=== PATIENT | female | born 1980 | race American Indian/Alaskan Native ===

== ENCOUNTER 2022-04-28 23:53 | Emergency (ER) | payer SELFPAY ==
[2022-04-29 03:18] LABS: Hematocrit 38.4 % (30.3-42.9); Hemoglobin 12.8 gm/dl (10.1-14.3); Mean Corpuscular HGB Conc 33 % (30-34); Mean Corpuscular Volume 93 fl (79-97); Platelet Count 415 K/mm3 (140-440); Red Blood Count 4.14 M/mm3 (3.65-5.03); Red Cell Distribution Width 14.1 % (13.2-15.2)
[2022-04-29 03:26] LABS: BUN/Creatinine Ratio 7; Blood Urea Nitrogen 4 mg/dL (7-17); Calcium 8.8 mg/dL (8.4-10.2); Hemolysis Index 27
[2022-04-29 03:27] LABS: Bacteria,Urine 2+ /HPF (Negative); Mucus,Urine FEW /HPF; RBC,Urine < 1.0 /HPF (0.0-6.0); WBC,Urine < 1.0 /HPF (0.0-6.0)
[2022-04-29 03:30] LABS: Amphetamine Screen,Urine Negative; Benzodiazepines Screen,Urine Negative; Cannabinoid Screen,Urine Negative; Cocaine Screen,Urine Negative; Methadone Screen,Urine Negative; Opiate Screen,Urine Negative
[2022-04-29 03:32] LABS: Color,Urine Yellow (Yellow)
--- NOTE | 2022-04-29 05:26 | Emergency Department Report ---
ED General Adult HPI - General Chief complaint: Psych Stated complaint: DETOX Time Seen by Provider: 04/29/22 04:17 Source: patient Mode of arrival: Ambulatory Limitations: No Limitations - History of Present Illness Initial comments: Patient is a 41-year-old female presenting to ED with request for EtOH detox. Reports last drink was 2 hours prior to arrival. Severity scale (0 -10): 0 - Related Data Home Medications Medication Instructions Recorded Confirmed Last Taken Duloxetine HCl [Cymbalta] 60 mg PO QDAY 04/29/22 04/29/22 Unknown Quetiapine Fumarate [SEROquel] 50 mg PO QHS 04/29/22 04/29/22 Unknown Allergies Allergy/AdvReac Type Severity Reaction Status Date / Time No Known Allergies Allergy Unverified 04/29/22 02:22 ED Review of Systems ROS: Stated complaint: DETOX Other details as noted in HPI Constitutional: denies: chills, fever Respiratory: denies: cough, shortness of breath, wheezing Cardiovascular: denies: chest pain, palpitations Gastrointestinal: denies: abdominal pain, nausea, diarrhea Musculoskeletal: denies: back pain, joint swelling, arthralgia Skin: denies: rash, lesions Neurological: denies: headache, weakness, paresthesias Psychiatric: denies: anxiety, depression ED Past Medical Hx - Medications Home Medications: Home Medications Medication Instructions Recorded Confirmed Last Taken Type Duloxetine HCl [Cymbalta] 60 mg PO QDAY 04/29/22 04/29/22 Unknown History Quetiapine Fumarate [SEROquel] 50 mg PO QHS 04/29/22 04/29/22 Unknown History ED Physical Exam - General Limitations: No Limitations General appearance: alert, in no apparent distress - Head Head exam: Present: atraumatic, normocephalic - Respiratory Respiratory exam: Present: normal lung sounds bilaterally. Absent: respiratory distress - Cardiovascular Cardiovascular Exam: Present: regular rate, normal rhythm, normal heart sounds - GI/Abdominal GI/Abdominal exam: Present: soft. Absent: distended, tenderness - Rectal Rectal exam: Present: deferred - Neurological Exam Neurological exam: Present: alert, oriented X3 - Psychiatric Psychiatric exam: Present: normal affect, normal mood - Skin Skin exam: Present: warm, dry, intact, normal color ED Course Vital Signs 08/21/22 08/21/22 08/21/22 01:57 04:09 04:15 Temperature 98.5 F 98.3 F Pulse Rate 114 H 122 H Respiratory 20 18 Rate Blood Pressure 98/67 Blood Pressure 103/62 [Right] O2 Sat by Pulse 97 98 97 Oximetry ED Medical Decision Making - Lab Data Result diagrams: 04/29/22 02:45 04/29/22 02:45 - Medical Decision Making Labs grossly unremarkable except for serum alcohol of 0.12. Awaiting mental health assessment. Critical care attestation.: If time is entered above; I have spent that time in minutes in the direct care of this critically ill patient, excluding procedure time. ED Disposition Clinical Impression: Desire for detoxification Disposition: 30 STILL A PATIENT Is pt being admited?: No Condition: Stable
[2022-04-29 07:05] LABS: Basophils % (Manual) 0 % (0.0-1.8); Total Cells Counted 100
[2022-04-29 07:06] LABS: Anisocytosis 1+; Platelet Estimate Consistent w Auto
[2022-04-29 09:31] VITALS: BP 102/76
--- NOTE | 2022-04-29 10:11 | Consultation ---
History of Present Illness - Reason for Consult Consult date: 04/29/22 Reason for consult: Mental health evaluation - History of Present Psychiatric Illness The patient is a 41 year old female with history of Depression, Anxiety and alcohol use disorder who presents to the ED for detoxification. The patient was seen today. She is calm, alert and oriented x4. She reports that she was in a rehab and that she consume alcohol yesterday " 2 beers" and was told she needs to have 5 days detox before she can be readmitted. She reports that she started drinking at age 14 with longest period of sobriety as 30 days. She reports trigger as " I bottle everything in and it just comes out." She denies any current suicidal/homicidal ideation and denies hallucinations. No withdrawal symptom noted. PAST PSYCHIATRIC HISTORY Diagnoses: Depression, Anxiety, Alcohol use Suicide attempts or Self-harm behavior: Denies Prior psychiatric hospitalizations: Yes Substance Abuse history: alcohol Previous psychiatric medications tried: Unknown Outpatient treatment: Unknown PAST MEDICAL HISTORY: None reported Family Psychiatric History: None reported or documented SOCIAL HISTORY Marital Status: single Living Arrangements: Homeless Employment Status: Unemployed Access to guns/weapons: Denies Education: 9th grade History of Abuse: Denies Legal History: Denies REVIEW OF SYSTEMS Constitutional: Negative for weight loss ENT: Negative for stridor Respiratory: Negative for cough or hemoptysis All other systems reviewed and are negative MENTAL STATUS EXAMINATION General Appearance and Behavior: Age appropriate, good hygiene, wearing appropriate clothes, good eye contact, calm, cooperative Cooperation: Participating/engaged Psychomotor Behavior: Psychomotor normal Mood: Calm Affect and affective range: congruent with stated mood Thought Process: goal directed Thought Content: Reality oriented Speech: Normal tone and pace Suicidal Ideation: Denies Homicidal Ideation: Denies Hallucinations: Denies Delusions: None elicited Impulse Control: Normal Insight and Judgment: Limited insight and judgment Memory: Normal Attention: Attentive Orientation: Alert, oriented Assessment and Plan Alcohol use disorder Treatment Plan Continue home Meds Risks, benefits and alternatives of medications discussed with the patient, questions answered and consent obtained from patient. PSYCHOTHERAPY: Supportive psychotherapy provided MEDICAL: Per primary team DELIRIUM PRECAUTIONS: Please re-orient patient frequently, keep lights on during the day, and minimize benzodiazepines and opiates as these medications could worsen patient's confusion. STOCK SHAPER: Defer to primary DISPOSITION:Do not recommend acute inpatient psychiatric hospitalization at this time. Concrete Saw Operator will provide patient with psychiatric outpatient resources. Will sign off. Thank you for the consult. Please contact with any questions and/or concerns. Case staffed with Dr. Padilla Medications and Allergies Allergies Allergy/AdvReac Type Severity Reaction Status Date / Time No Known Allergies Allergy Unverified 04/29/22 02:22 Home Medications Medication Instructions Recorded Confirmed Last Taken Type Duloxetine HCl [Cymbalta] 60 mg PO QDAY 04/29/22 04/29/22 Unknown History Quetiapine Fumarate [SEROquel] 50 mg PO QHS 04/29/22 04/29/22 Unknown History Mental Status Exam - Vital signs Last Vital Signs Temp 98.8 F 04/29/22 09:28 Pulse 93 H 04/29/22 09:28 Resp 18 04/29/22 09:28 BP 102/76 04/29/22 09:28 Pulse Ox 96 04/29/22 09:28 Results Result Diagrams: 04/29/22 02:45 04/29/22 02:45 Abnormal lab results 04/29/22 04/29/22 04/29/22 Range/Units 02:45 02:45 02:45 Seg Neuts % (Manual) (40.0-70.0) % Lymphocytes % (Manual) (13.4-35.0) % Monocytes % (Manual) (0.0-7.3) % Sodium 136 L (137-145) mmol/L BUN 4 L (7-17) mg/dL Glucose 107 H (65-100) mg/dL Salicylates < 0.3 L (2.8-20.0) mg/dL Acetaminophen 5.0 L (10.0-30.0) ug/mL Plasma/Serum Alcohol (0-0.07) % 04/29/22 04/29/22 Range/Units 02:45 02:45 Seg Neuts % (Manual) 36.0 L (40.0-70.0) % Lymphocytes % (Manual) 54.0 H (13.4-35.0) % Monocytes % (Manual) 8.0 H (0.0-7.3) % Sodium (137-145) mmol/L BUN (7-17) mg/dL Glucose (65-100) mg/dL Salicylates (2.8-20.0) mg/dL Acetaminophen (10.0-30.0) ug/mL Plasma/Serum Alcohol 0.12 H (0-0.07) % All other labs normal.
--- NOTE | 2022-04-29 12:36 | Event Note ---
Date: 04/29/22 Pt seen by the psychiatry this morning and sign off to be discharge without recommending inpatient. Pt denies any SI or HI this morning. Pt will be discharge to continue home medication and with available societal resources.
== END 2022-04-29 14:00 | disposition home or self-care (01) ==
LOC: ED 23:53
DX: F10.130 Alcohol abuse with withdrawal, uncomplicated (principal)
CPT/HCPCS: 36415; 80048; 80307; 80320; 81001; 85007; 85025; 99284; G0480